=== PATIENT | female | born 1990 | race Caucasian/White ===

== ENCOUNTER 2017-05-24 18:18 | Emergency (ER) | payer SELFPAY ==
--- NOTE | ~2017-05-24 | ER ---
PATIENT'S NAME: VALENTINO BENZ [facility] AGE: 26 Y [address] ROOM: [place] [address] LOCATION: [facility] ADMIT DATE: 05/24/2017 ER/Outpatient Report DISCHARGE DATE: 05/24/2017 FAMILY PHYSICIAN: Lopez Todd MD ATTENDING PHYSICIAN: Kaleb Abdullahi Time of Arrival: 1853 hours. Time of Exam: 1903 hours. CHIEF COMPLAINT: Right foot injury. HISTORY OF PRESENT ILLNESS: The patient states yesterday 05/23/2017 she stubbed her right toes on the coffee table. Has quite a bit of pain in her 3rd, 4th, and 5th toes. Has bruising on the top part of her foot and some swelling. ALLERGIES: LATEX. CURRENT MEDICATIONS: None. PAST MEDICAL HISTORY: Anxiety and MS. PAST SURGERIES: L4-L5 surgery. SOCIAL HISTORY: Smokes half a pack per day, has for the past 10 years. Denies use of drugs or alcohol. REVIEW OF SYSTEMS: Negative other than those mentioned in the HPI. PHYSICAL EXAMINATION: VITAL SIGNS: She states she is 5 feet 7 inches. She weighed 113.3 kg. Blood pressure was 157/68, pulse is 68, respirations 16, temperature of 98.1 tympanic, and O2 saturation was 98% on room air. GENERAL: She is awake, alert, and oriented x4. SKIN: [place], warm, and dry. RESPIRATIONS: Even and nonlabored. Lung sounds are clear throughout. HEART: Regular rate and rhythm. MUSCULOSKELETAL: Right dorsal foot is slightly swollen. It is ecchymotic, PATIENT'S NAME: VALENTINO BENZ [facility] AGE: 26 Y [address] ROOM: [place] [address] LOCATION: [facility] ADMIT DATE: 05/24/2017 ER/Outpatient Report DISCHARGE DATE: 05/24/2017 FAMILY PHYSICIAN: Lopez Todd MD ATTENDING PHYSICIAN: Kaleb Abdullahi especially near the 3rd, 4th, and 5th digits. She has good sensation to her toes. She is able to wiggle her toes, but has quite a bit discomfort in her 4th and 5th toes when she tends to move them. EMERGENCY ROOM COURSE: The patient was informed that we get an x-ray of the foot. While awaiting x- ray, I did tell the patient that it would be a while due to the backup of studies to be done with the ER patients. She verbalized understanding and then at 1944 hours she states that her brother was locked out in the apartment and that she has to leave and does not want to have the exam finished, so she completed the paperwork and left AMA. IMPRESSION: Right foot injury. PLAN: The patient left AMA. I did encourage her to seek further care if she continue to have problems, she verbalized understanding. BRI VAZQUEZ APRN FOR MD ROSIE WHEELER/micaela /[id number] d: 05/25/17 0018 t: 05/27/17 1105, OUTPATIENT REPORT
== END 2017-05-24 19:44 | disposition disaster alternative care site (69) ==
LOC: GACC 18:18
DX: S90.31XA Contusion of right foot, initial encounter (principal); F17.210 Nicotine dependence, cigarettes, uncomplicated; F41.9 Anxiety disorder, unspecified; G35 Multiple sclerosis; Z91.040 Latex allergy status; Z79.3 Long term (current) use of hormonal contraceptives; Z79.899 Other long term (current) drug therapy; Z98.890 Other specified postprocedural states; W22.03XA Walked into furniture, initial encounter